=== PATIENT | female | born 1970 | race Caucasian/White ===

== ENCOUNTER 2018-10-28 09:05 | Outpatient (CLI) | payer BC ==
--- NOTE | 2018-10-28 10:35 | MMO ---
Bilateral MAMMO Bilat Screen [facility]. CLINICAL HISTORY: Patient is 48 years old and is seen for screening. The patient has no family history of breast cancer. The patient has no personal history of cancer. VIEWS: The views performed were: bilateral craniocaudal with tomosynthesis; bilateral mediolateral oblique with tomosynthesis; and right craniocaudal. MAMMOGRAM FINDINGS: There are scattered fibroglandular densities. Finding 1: There is a focal asymmetry seen in the middle region of the right breast at 12 o'clock. Finding 2: There are benign scattered densities in both breasts. IMPRESSION: FINDING 1: FOCAL ASYMMETRY IN THE RIGHT BREAST REQUIRES ADDITIONAL EVALUATION. AN ULTRASOUND EXAM IS RECOMMENDED. FINDING 2: FINDINGS IN BOTH BREASTS ARE BENIGN. THE RESULTS OF THIS EXAM WERE SENT TO THE PATIENT. ACR BI-RADS Category 0 - Incomplete: Need additional imaging evaluation. [facility] will notify the patient of the need for additional imaging services. MAMMOGRAPHY NOTE: 1. A negative mammogram report should not delay a biopsy if a dominant of clinically suspicious mass is present. 2. Approximately 10% to 15% of breast cancers are not detected by mammography. 3. Adenosis and dense breasts may obscure an underlying neoplasm.
== END 2018-10-28 09:06 | disposition home or self-care (01) ==
LOC: BICMAMMO 09:05
PROVIDERS: ATTEND Family Medicine
DX: Z12.31 Encounter for screening mammogram for malignant neoplasm of breast (principal); N64.89 Other specified disorders of breast
CPT/HCPCS: 77063; 77067

== ENCOUNTER 2018-11-04 07:53 | Outpatient (CLI) | payer BC ==
--- NOTE | 2018-11-04 08:45 | ULT ---
RIGHT BREAST ULTRASOUND: HISTORY: Right breast abnormality on mammogram of 10/28/2018. FINDINGS: Correlation is made to the mammogram of 10/28/2018. The sonographic evaluation of the right breast 11, 12, and 1 o'clock positions demonstrates no abnorm ality. IMPRESSION: BIRADS category 2 - benign findings. Return to annual mammographic screening. POS: OFF
== END 2018-11-04 07:54 | disposition home or self-care (01) ==
LOC: BICULT 07:53
PROVIDERS: ATTEND Family Medicine
DX: R92.8 Other abnormal and inconclusive findings on diagnostic imaging of breast (principal)